=== PATIENT | male | born 1965 | race American Indian/Alaskan Native ===

== ENCOUNTER 2019-07-12 23:07 | Emergency (ER) | payer BC, OTHER ==
[2019-07-12 23:32] VITALS: BP 150/92
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
--- NOTE | 2019-07-13 00:46 | XRay Report ---
Bilateral knees 4 views INDICATION: Bilateral knee pain IMPRESSION: No fracture or subluxation identified within either knee. Small right knee effusion. Signer Name: Prosper Hernandes MD Signed: 07/13/2019 12:42 AM Workstation Name: [email or web address]
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
[2019-07-13] MEDS ORDERED: TORADOL IM ONE (01:45)
== END 2019-07-13 02:04 | disposition home or self-care (01) ==
LOC: ED 23:07
DX: R51 Headache (principal); M54.2 Cervicalgia; M25.561 Pain in right knee; M25.562 Pain in left knee; V89.2XXA Person injured in unspecified motor-vehicle accident, traffic, initial encounter; Y93.89 Activity, other specified; Y92.410 Unspecified street and highway as the place of occurrence of the external cause; Y99.8 Other external cause status
CPT/HCPCS: 70450; 72125; 72170; 73562; 74019; 96372; 99284; J1885